=== PATIENT | female | born 1980 | race Caucasian/White ===

== ENCOUNTER 2023-09-13 23:37 | Emergency (ER) | payer BC ==
[2023-09-13 23:40] VITALS: BP 153/89; PULSE 108
[2023-09-13] MEDS: Albuterol/Ipratropium 3.0-0.5 MG/3 ML Neb Soln NEB ONE (23:56)
[2023-09-14] MEDS: methylPREDNISolone Sodium Succinate 125 MG/2 ML SDV IM ONE (00:29)
[2023-09-14] MEDS: Albuterol 6.7 GM Inhaler INH PRN (00:29)
[2023-09-14] MEDS: Azithromycin 250 MG Tab PO ONE (00:29)
== END 2023-09-14 00:40 | disposition home or self-care (01) ==
LOC: MERGE 23:37 → CC.ED 23:37
DX: J06.9 Acute upper respiratory infection, unspecified (principal); F17.210 Nicotine dependence, cigarettes, uncomplicated
CPT/HCPCS: 96372; 99284; A9270-GY; J2930; J7620-GY

== ENCOUNTER 2024-02-04 18:53 | Emergency (ER) | payer BC ==
[2024-02-04] MEDS: Lidocaine 1% 5 ML VIAL INJECT ONE (19:21)
== END 2024-02-04 19:21 | disposition home or self-care (01) ==
LOC: CC.ED 18:53
DX: S60.551A Superficial foreign body of right hand, initial encounter (principal); Z90.49 Acquired absence of other specified parts of digestive tract; W45.8XXA Other foreign body or object entering through skin, initial encounter
CPT/HCPCS: 99283; J3490